=== PATIENT | female | born 1940 | race Caucasian/White ===

== ENCOUNTER 2016-12-28 13:17 | Inpatient (IN) | payer OTHER ==
[~2016-12-28] VITALS: Ht 157.5 cm; Wt 62.7 kg
[~2016-12-28 13:17] MED LIST: AMBIEN10 MG PO; AMITRIPTYLINE100 M1 PO; ASPIR-TRIN325 M1 PO; Ambien PO; BUSPAR5 MG PO; COUMADIN,JANTOVE4 MG PO; ELAVIL10 MG PO; ELAVIL75 MG PO; Elavil PO; GABAPENTIN800 MG PO; KADIAN100 MG PO; LOPRESSOR12.5 MG PO; MS CONTIN100 MG PO; NEURONTIN800 MG PO; NEXIUM10 MG PO; NEXIUM40 MG PO; NUCYNTA100 MG PO; NUCYNTA75 MG PO; OXYCONTIN10 MG PO; PAXIL10 MG PO; PAXIL30 MG PO; Paxil PO; REQUIP0.25 MG PO; REQUIP1 MG PO; SOMA250 MG PO; SOMA350 MG PO; Soma PO; ULTRAM50 MG PO; VICODIN 5-5001 EACH PO; Zocor PO
[2016-12-28 14:58] LABS: HEMATOCRIT 40.8 % (36.0-46.0); MCH 28.9 PG (29.0-34.0); MCHC 32.4 G/DL (30.0-36.0); MCV 89.5 FL (83-99); MEAN PLAT.VOLUME 9.7 uM^3 (9.5-12.4); PLATELET COUNT 318 K/uL (156-360); RBC DIS.WIDTH-CV 13.3 % (11.8-14.6); RBC DIS.WIDTH-SD 43.9 % (39-53); RED BLOOD COUNT 4.56 M/uL (3.80-5.20)
[2016-12-28 15:14] LABS: INTER. NORMALIZED RATIO 1.1; PROTHROMBIN TIME 11.1 (9.2-11.2); PTT 28.2 (25-32)
[2016-12-28 15:18] LABS: CHLORIDE 105 mEq/L (99-109); POTASSIUM 3.5 mEq/L (3.7-5.4); SODIUM 140 mEq/L (136-147)
[2016-12-28 15:20] LABS: GLUCOSE 124 mg/dL (70-99)
[2016-12-28 15:21] LABS: ANION GAP 12 MEQ/L (2-14)
[2016-12-28 15:24] LABS: GFR ESTIMATE (CALCULATED) > 59 mL/min/
[2016-12-28 15:25] LABS: TROP-I INTERPRETATION NEGATIVE; TROPONIN-I < 0.01 ng/mL (0.0-0.30); UREA NITROGEN (BUN) 11 mg/dL (9-23)
[2016-12-28] MEDS ORDERED: ELAVIL100 MG PO (16:48)
[2016-12-28] MEDS ORDERED: AMBIEN10 MG PO (16:48)
[2016-12-28] MEDS ORDERED: TRICOR145 MG PO (16:48)
[2016-12-28] MEDS ORDERED: MS CONTIN,ORAMO30 MG PO (16:49)
[2016-12-28] MEDS ORDERED: HYDROCODON-ACE1 EAC9 PO (16:50)
[2016-12-28 17:23] LABS: ADD MIUA? YES; BILIRUBIN NEGATIVE; BLOOD SMALL; COLOR STRAW ((YELLOW)); GLUCOSE (STRIP) NEGATIVE; KETONES NEGATIVE; LEUKOCYTES NEGATIVE; NITRITE NEGATIVE; PROTEIN (STRIP) NEGATIVE; SPECIFIC GRAVITY 1.006 (1.000-1.030); UROBILINOGEN 0.2 MG/DL (0.2-1.0)
[2016-12-28 17:27] LABS: BACTERIA NONE SEEN /HPF; EPITHELIAL CELLS RARE /HPF; MUCUS TRACE /LPF; RED BLOOD CELLS 0-5 /HPF (0-5); UCUL ADDED? NO; WHITE BLOOD CELLS 0-5 /HPF (0-5)
[2016-12-28 20:42] LABS: TROP-I INTERPRETATION NEGATIVE; TROPONIN-I 0.01 ng/mL (0.0-0.30)
[2016-12-28 23:43] VITALS: BP 111/61
[2016-12-29] VITALS (9 sets, daily range): BP systolic 82–114; BP diastolic 50–66
[2016-12-29 03:35] LABS: TROP-I INTERPRETATION NEGATIVE; TROPONIN-I < 0.01 ng/mL (0.0-0.30)
[2016-12-29 05:51] LABS: HEMATOCRIT 37.8 % (36.0-46.0); MCH 28.8 PG (29.0-34.0); MCHC 31.5 G/DL (30.0-36.0); MCV 91.5 FL (83-99); MEAN PLAT.VOLUME 9.9 uM^3 (9.5-12.4); PLATELET COUNT 319 K/uL (156-360); RBC DIS.WIDTH-CV 13.9 % (11.8-14.6); RBC DIS.WIDTH-SD 46.8 % (39-53); RED BLOOD COUNT 4.13 M/uL (3.80-5.20); WHITE BLOOD COUNT 6.6 K/uL (4.1-10.2)
[2016-12-29 06:31] LABS: CHLORIDE 110 mEq/L (99-109); POTASSIUM 3.6 mEq/L (3.7-5.4); SODIUM 143 mEq/L (136-147)
[2016-12-29 06:33] LABS: GLUCOSE 160 mg/dL (70-99)
[2016-12-29 06:34] LABS: ANION GAP 12 MEQ/L (2-14)
[2016-12-29 06:35] LABS: TOTAL BILIRUBIN 0.4 mg/dL (0.0-1.0)
[2016-12-29 06:36] LABS: ALKALINE PHOSPHATASE 64 IU/L (3-129)
[2016-12-29 06:37] LABS: GFR ESTIMATE (CALCULATED) > 59 mL/min/
[2016-12-29 06:38] LABS: UREA NITROGEN (BUN) 10 mg/dL (9-23)
[2016-12-29 07:00] LABS: Estimated Average Glucose 123 mg/dL (70-123); HEMOGLOBIN A1c (GLYCOHEMOGLOB) 5.9 % HGB (Below 5.7)
[2016-12-29 07:25] LABS: HDL CHOLESTEROL 39 MG/DL (Desirable>=50); LDL CHOLESTEROL 115 mg/dL (Desirable<100); NON-HDL CHOLESTEROL 157 mg/dL (Desirable<160); TOTAL CHOLESTEROL 196 mg/dL (Desirable<200); TRIGLYCERIDES 208 MG/DL (Normal: <150)
[2016-12-30 03:21] VITALS: BP 125/65
[2016-12-30 07:37] VITALS: BP 91/53
[2016-12-30] MEDS ORDERED: ASPIR-LOW81 MG PO (11:22)
[2016-12-30] MEDS ORDERED: LIPITOR40 MG PO (11:37)
[2016-12-30] MEDS ORDERED: LOVENOX40 MG/0.4 SC (11:38)
[2016-12-30] MEDS ORDERED: COLACE100 MG PO (11:39)
[2016-12-30] MEDS ORDERED: MIRALAX17 GM PO (11:39)
[2016-12-30] MEDS ORDERED: ACETAMINOPHEN325 M1 PO (11:40)
== END 2016-12-30 09:59 | DRG 65 ==
LOC: EME 13:17 → 5SOUTH 17:07 → EDOF 17:07 → 5SOUTH 17:07
PROVIDERS: Emergency Medicine; Internal Medicine
DX: I63.8 Other cerebral infarction (principal); G81.94 Hemiplegia, unspecified affecting left nondominant side; R73.03 Prediabetes; Z86.73 Personal history of transient ischemic attack (TIA), and cerebral infarction without residual deficits; G25.81 Restless legs syndrome; G89.29 Other chronic pain; M54.9 Dorsalgia, unspecified; E78.4 Other hyperlipidemia; R42 Dizziness and giddiness; R73.9 Hyperglycemia, unspecified; E87.6 Hypokalemia
CPT/HCPCS: 70450; 70551; 80048; 80053; 80061; 81003; 83036; 84484; 85027; 85610; 85730; 92610 GN; 93005; 93306; 93880; 99281; 99285; J1650; J2060; J2405; J2765; J7030; S0028

== ENCOUNTER 2016-12-30 09:34 | Inpatient (IN) | payer OTHER ==
[~2016-12-30] VITALS: Ht 157.5 cm; Wt 65.9 kg
[~2016-12-30 09:34] MED LIST changes: +ELAVIL100 MG PO; +HYDROCODON-ACE1 EAC9 PO; +MS CONTIN,ORAMO30 MG PO; +TRICOR145 MG PO
[2016-12-30] MEDS ORDERED: ASPIR-LOW81 MG PO (11:22)
[2016-12-30] MEDS ORDERED: LIPITOR40 MG PO (11:37)
[2016-12-30] MEDS ORDERED: LOVENOX40 MG/0.4 SC (11:38)
[2016-12-30] MEDS ORDERED: MIRALAX17 GM PO (11:39)
[2016-12-30] MEDS ORDERED: COLACE100 MG PO (11:39)
[2016-12-30] MEDS ORDERED: ACETAMINOPHEN325 M1 PO (11:40)
[2016-12-30 11:47] VITALS: BP 100/59
[2016-12-30 13:16] VITALS: BP 100/59
[2016-12-31 06:19] VITALS: BP 98/53
[2016-12-31 07:10] LABS: HEMATOCRIT 39.4 % (36.0-46.0); MCH 29.5 PG (29.0-34.0); MCV 92.3 FL (83-99); MEAN PLAT.VOLUME 10.3 uM^3 (9.5-12.4); PLATELET COUNT 330 K/uL (156-360); RBC DIS.WIDTH-CV 13.5 % (11.8-14.6); RBC DIS.WIDTH-SD 45.9 % (39-53); RED BLOOD COUNT 4.27 M/uL (3.80-5.20); WHITE BLOOD COUNT 6.6 K/uL (4.1-10.2)
[2016-12-31 07:45] LABS: ALKALINE PHOSPHATASE 58 IU/L (3-129); ANION GAP 8 MEQ/L (2-14); CHLORIDE 102 MEQ/L (99-109); GFR ESTIMATE (CALCULATED) 51 mL/min/; GLUCOSE 79 mg/dL (70-99); POTASSIUM 5.2 MEQ/L (3.7-5.4); SAMPLE HEMOLYSIS CHECK 2; SAMPLE ICTERIC CHECK 0; SAMPLE LIPEMIA CHECK 0; SODIUM 140 MEQ/L (136-147); TOTAL BILIRUBIN 0.5 MG/DL (0.0-1.0); UREA NITROGEN (BUN) 18 mg/dL (9-23)
[2016-12-31 13:00] VITALS: BP 112/75
[2017-01-01 05:34] VITALS: BP 82/52
[2017-01-01 08:03] VITALS: BP 102/68
[2017-01-01 11:35] VITALS: BP 108/60
[2017-01-01 15:52] VITALS: BP 89/53
[2017-01-02 05:35] VITALS: BP 117/59
[2017-01-02 16:34] VITALS: BP 108/62
[2017-01-03 04:00] VITALS: BP 90/59
[2017-01-03 17:56] VITALS: BP 106/62
[2017-01-04 04:32] VITALS: BP 80/53
[2017-01-04 14:02] VITALS: BP 86/50
[2017-01-04 15:17] VITALS: BP 94/55
[2017-01-05 04:25] VITALS: BP 94/62
[2017-01-05 10:10] LABS: HEMATOCRIT 42.6 % (36.0-46.0); MCH 29.2 PG (29.0-34.0); MCHC 31.7 G/DL (30.0-36.0); MCV 92.2 FL (83-99); RBC DIS.WIDTH-CV 13.7 % (11.8-14.6); RBC DIS.WIDTH-SD 46.6 % (39-53); RED BLOOD COUNT 4.62 M/uL (3.80-5.20); WHITE BLOOD COUNT 5.9 K/uL (4.1-10.2)
[2017-01-05 10:22] LABS: CHLORIDE 102 mEq/L (99-109); POTASSIUM 4.2 mEq/L (3.7-5.4); SODIUM 141 mEq/L (136-147)
[2017-01-05 10:23] LABS: GLUCOSE 148 mg/dL (70-99)
[2017-01-05 10:25] LABS: ANION GAP 9 MEQ/L (2-14)
[2017-01-05 10:27] LABS: GFR ESTIMATE (CALCULATED) 57 mL/min/
[2017-01-05 10:28] LABS: UREA NITROGEN (BUN) 18 mg/dL (9-23)
[2017-01-05 10:31] VITALS: BP 102/68
[2017-01-05 11:15] LABS: MEAN PLAT.VOLUME 10.8 uM^3 (9.5-12.4); PLAT.SUFFICIENCY INCREASED; PLATELET COUNT 323 K/uL (156-360)
[2017-01-05 14:14] VITALS: BP 104/68
[2017-01-05 16:05] VITALS: BP 120/70
[2017-01-05 16:06] VITALS: BP 119/67
[2017-01-05 16:07] VITALS: BP 119/55
[2017-01-06 05:47] VITALS: BP 88/52
[2017-01-06 06:04] VITALS: BP 121/71
[2017-01-06 06:07] VITALS: BP 102/75
[2017-01-06 15:22] VITALS: BP 86/51
[2017-01-07 05:41] VITALS: BP 92/50
[2017-01-07 05:51] VITALS: BP 92/50
[2017-01-07 05:53] VITALS: BP 100/71
[2017-01-07 05:54] VITALS: BP 100/71
[2017-01-07 15:03] VITALS: BP 99/67
[2017-01-08 04:20] VITALS: BP 82/46
[2017-01-08 11:12] VITALS: BP 117/70
[2017-01-08 15:37] VITALS: BP 117/75
[2017-01-09 04:41] VITALS: BP 87/54
[2017-01-09 17:13] VITALS: BP 95/50
[2017-01-10 06:15] VITALS: BP 86/50
[2017-01-10 08:46] VITALS: BP 107/68
[2017-01-10 15:41] VITALS: BP 90/55
[2017-01-11 05:06] VITALS: BP 104/54
[2017-01-11 15:14] VITALS: BP 103/74
[2017-01-12 05:35] VITALS: BP 106/59
[2017-01-12 15:35] VITALS: BP 84/53
[2017-01-12 18:04] VITALS: BP 109/60
[2017-01-13 04:48] VITALS: BP 88/55
[2017-01-13 15:27] VITALS: BP 100/69
[2017-01-14 04:50] VITALS: BP 86/53
[2017-01-14 15:46] VITALS: BP 109/68
[2017-01-14 17:14] LABS: BICARBONATE 25.2 mEq/L (22-26); CARBOXY HGB 2.1 % (0-5); COMMENTS - BLOOD GASES A+C+; DEVICE NC; METHEMOGLOBIN 1.4 % (0-1.5); O2 FLOW 2 L/MIN; PCO2 38 mm Hg (35-45); PO2 58 mm Hg (80-100); SITE LR; pH 7.43 (7.35-7.45)
[2017-01-14 22:52] VITALS: BP 121/63
[2017-01-15 05:47] VITALS: BP 85/50
[2017-01-15 06:15] VITALS: BP 100/65
[2017-01-15 07:44] VITALS: BP 85/53
[2017-01-15 07:45] VITALS: BP 105/68
[2017-01-15 07:46] VITALS: BP 97/70
[2017-01-15 11:46] LABS: HEMATOCRIT 47.3 % (36.0-46.0); MCHC 31.7 G/DL (30.0-36.0); MCV 91.3 FL (83-99); MEAN PLAT.VOLUME 10.4 uM^3 (9.5-12.4); PLATELET COUNT 391 K/uL (156-360); RBC DIS.WIDTH-CV 13.5 % (11.8-14.6); RED BLOOD COUNT 5.18 M/uL (3.80-5.20); WHITE BLOOD COUNT 6.8 K/uL (4.1-10.2)
[2017-01-15 12:03] LABS: D-DIMER ELISA 0.32 mg/L FEU (< 0.57)
[2017-01-15 12:52] LABS: ALKALINE PHOSPHATASE 52 IU/L (3-129); ANION GAP 11 MEQ/L (2-14); CHLORIDE 101 MEQ/L (99-109); GFR ESTIMATE (CALCULATED) > 59 mL/min/; GLUCOSE 125 mg/dL (70-99); POTASSIUM 4.3 MEQ/L (3.7-5.4); SAMPLE HEMOLYSIS CHECK 0; SAMPLE ICTERIC CHECK 0; SAMPLE LIPEMIA CHECK 0; SODIUM 139 MEQ/L (136-147); TOTAL BILIRUBIN 0.4 MG/DL (0.0-1.0); UREA NITROGEN (BUN) 20 mg/dL (9-23)
[2017-01-15 15:42] VITALS: BP 84/51
[2017-01-16 05:16] VITALS: BP 81/51
[2017-01-16 12:53] VITALS: BP 122/65
[2017-01-16 15:35] VITALS: BP 84/52
[2017-01-17 06:20] VITALS: BP 81/53
[2017-01-17 09:00] VITALS: BP 107/56
[2017-01-17 15:32] VITALS: BP 75/48
[2017-01-17 15:40] VITALS: BP 88/58
[2017-01-17 18:11] VITALS: BP 90/60
[2017-01-18 06:24] VITALS: BP 80/52
[2017-01-18 07:40] LABS: HEMATOCRIT 39.8 % (36.0-46.0); MCHC 31.7 G/DL (30.0-36.0); MCV 91.7 FL (83-99); MEAN PLAT.VOLUME 10.5 uM^3 (9.5-12.4); PLATELET COUNT 332 K/uL (156-360); RBC DIS.WIDTH-CV 13.6 % (11.8-14.6); RBC DIS.WIDTH-SD 46.3 % (39-53); RED BLOOD COUNT 4.34 M/uL (3.80-5.20); WHITE BLOOD COUNT 5.1 K/uL (4.1-10.2)
[2017-01-18 07:46] LABS: ALKALINE PHOSPHATASE 44 IU/L (3-129); ANION GAP 6 MEQ/L (2-14); CHLORIDE 105 MEQ/L (99-109); GFR ESTIMATE (CALCULATED) > 59 mL/min/; POTASSIUM 4.2 MEQ/L (3.7-5.4); SAMPLE HEMOLYSIS CHECK 0; SAMPLE ICTERIC CHECK 0; SAMPLE LIPEMIA CHECK 0; SODIUM 140 MEQ/L (136-147); UREA NITROGEN (BUN) 15 mg/dL (9-23)
[2017-01-18 08:11] LABS: GLUCOSE 88 mg/dL (70-99); TOTAL BILIRUBIN 0.3 MG/DL (0.0-1.0)
[2017-01-18 15:37] VITALS: BP 100/59
[2017-01-19 05:59] VITALS: BP 103/64
[2017-01-19] MEDS ORDERED: LIPITOR40 MG PO (09:56)
[2017-01-19] MEDS ORDERED: ASPIR-LOW81 MG PO (09:56)
[2017-01-19] MEDS ORDERED: MIRALAX17 GM PO (09:56)
[2017-01-19] MEDS ORDERED: FAMOTIDINE20 MG PO (09:56)
[2017-01-19] MEDS ORDERED: TRICOR145 MG PO (09:56)
== END 2017-01-19 14:47 | DRG 57 ==
LOC: 3WEST 09:34
PROVIDERS: Internal Medicine; Internal Medicine Pulmonary Disease; Physical Medicine & Rehabilitation Pain Medicine; Physician Assistant
PROC: F07M0ZZ Range of Motion and Joint Mobility Treatment of Musculoskeletal System - Whole Body (ICD-10-PCS; principal; 2016-12-30)
DX: I69.354 Hemiplegia and hemiparesis following cerebral infarction affecting left non-dominant side (principal); J98.11 Atelectasis; R09.02 Hypoxemia; I95.1 Orthostatic hypotension; E86.0 Dehydration; E87.6 Hypokalemia; F32.9 Major depressive disorder, single episode, unspecified; G25.81 Restless legs syndrome; G89.29 Other chronic pain; R20.0 Anesthesia of skin; M54.16 Radiculopathy, lumbar region; S84.10XA Injury of peroneal nerve at lower leg level, unspecified leg, initial encounter; I10 Essential (primary) hypertension; E11.9 Type 2 diabetes mellitus without complications; E78.5 Hyperlipidemia, unspecified; K21.9 Gastro-esophageal reflux disease without esophagitis; K59.00 Constipation, unspecified; Z60.2 Problems related to living alone; Z79.82 Long term (current) use of aspirin; Z88.0 Allergy status to penicillin; Z88.5 Allergy status to narcotic agent
CPT/HCPCS: 36600; 71010; 71275; 80048; 80053; 82803; 84443; 85027; 85379; 92507 GN; 92523 GN; 94799; 97110 GO; 97530 GP; 97532 GN; J1650; J7030; J7120

== ENCOUNTER 2017-02-01 18:31 | Inpatient (IN) | payer OTHER ==
[~2017-02-01] VITALS: Ht 157.5 cm; Wt 61.4 kg
[~2017-02-01 18:31] MED LIST changes: +ACETAMINOPHEN325 M1 PO; +ASPIR-LOW81 MG PO; +COLACE100 MG PO; +FAMOTIDINE20 MG PO; +LIPITOR40 MG PO; +LOVENOX40 MG/0.4 SC; +MIRALAX17 GM PO
[2017-02-01 19:50] LABS: HEMATOCRIT 42.8 % (36.0-46.0); MCH 28.7 PG (29.0-34.0); MCHC 32.9 G/DL (30.0-36.0); MEAN PLAT.VOLUME 10.4 uM^3 (9.5-12.4); PLATELET COUNT 358 K/uL (156-360); RBC DIS.WIDTH-CV 13.9 % (11.8-14.6); RBC DIS.WIDTH-SD 44.6 % (39-53); RED BLOOD COUNT 4.91 M/uL (3.80-5.20); WHITE BLOOD COUNT 7.4 K/uL (4.1-10.2)
[2017-02-01 19:51] LABS: CHLORIDE 109 mEq/L (99-109); MCV 87.2 FL (83-99)
[2017-02-01 19:52] LABS: POTASSIUM 3.6 mEq/L (3.7-5.4); SODIUM 141 mEq/L (136-147)
[2017-02-01 19:54] LABS: GLUCOSE 150 mg/dL (70-99)
[2017-02-01 19:55] LABS: ANION GAP 11 MEQ/L (2-14)
[2017-02-01 19:56] LABS: TOTAL BILIRUBIN 0.3 mg/dL (0.0-1.0)
[2017-02-01 19:57] LABS: ALKALINE PHOSPHATASE 45 IU/L (3-129)
[2017-02-01 19:58] LABS: GFR ESTIMATE (CALCULATED) 51 mL/min/
[2017-02-01 19:59] LABS: DIRECT BILIRUBIN 0.2 mg/dL (0.0-0.3); UREA NITROGEN (BUN) 18 mg/dL (9-23)
[2017-02-01 20:01] LABS: LIPASE 49 U/L (1.0-51.0)
[2017-02-01 20:02] LABS: TROP-I INTERPRETATION NEGATIVE; TROPONIN-I < 0.01 ng/mL (0.0-0.30)
[2017-02-01] MEDS ORDERED: ASPIR 8181 M1 PO (22:21)
[2017-02-01] MEDS ORDERED: FAMOTIDINE20 MG PO (22:22)
[2017-02-01] MEDS ORDERED: AMBIEN10 MG PO (22:22)
[2017-02-01] MEDS ORDERED: MIRALAX255 GM PO (22:22)
[2017-02-02] VITALS (7 sets, daily range): BP systolic 90–121; BP diastolic 52–72
[2017-02-02 03:16] LABS: INTER. NORMALIZED RATIO 1.2; PTT 27.8 (25-32)
[2017-02-02 06:52] LABS: TROP-I INTERPRETATION NEGATIVE; TROPONIN-I < 0.01 ng/mL (0.0-0.30)
[2017-02-02 12:50] LABS: TROP-I INTERPRETATION NEGATIVE; TROPONIN-I < 0.01 ng/mL (0.0-0.30)
[2017-02-02 14:57] LABS: ADD MIUA? YES; BILIRUBIN NEGATIVE; BLOOD SMALL; COLOR YELLOW ((YELLOW)); GLUCOSE (STRIP) NEGATIVE; KETONES NEGATIVE; LEUKOCYTES MODERATE; NITRITE NEGATIVE; PROTEIN (STRIP) NEGATIVE; SPECIFIC GRAVITY 1.026 (1.000-1.030); UROBILINOGEN 0.2 MG/DL (0.2-1.0)
[2017-02-02 15:17] LABS: BACTERIA RARE /HPF; EPITHELIAL CELLS RARE /HPF; MUCUS TRACE /LPF; RED BLOOD CELLS 0-5 /HPF (0-5); UCUL ADDED? NO; WHITE BLOOD CELLS 0-5 /HPF (0-5); WHITE BLOOD CELLS CLUMP RARE /HPF (0-5)
[2017-02-03 03:45] VITALS: BP 93/53
[2017-02-03 07:09] LABS: ANION GAP 9 MEQ/L (2-14); CHLORIDE 109 MEQ/L (99-109); GFR ESTIMATE (CALCULATED) 57 mL/min/; POTASSIUM 3.9 MEQ/L (3.7-5.4); SAMPLE HEMOLYSIS CHECK 0; SAMPLE ICTERIC CHECK 0; SAMPLE LIPEMIA CHECK 0; SODIUM 141 MEQ/L (136-147); UREA NITROGEN (BUN) 22 mg/dL (9-23)
[2017-02-03 07:10] LABS: GLUCOSE 98 mg/dL (70-99)
[2017-02-03 07:44] LABS: HEMATOCRIT 35.5 % (36.0-46.0); MCH 29.2 PG (29.0-34.0); MCHC 32.1 G/DL (30.0-36.0); MCV 90.8 FL (83-99); MEAN PLAT.VOLUME 10.8 uM^3 (9.5-12.4); PLATELET COUNT 300 K/uL (156-360); RBC DIS.WIDTH-CV 14.5 % (11.8-14.6); RBC DIS.WIDTH-SD 48.3 % (39-53); RED BLOOD COUNT 3.91 M/uL (3.80-5.20); WHITE BLOOD COUNT 7.4 K/uL (4.1-10.2)
[2017-02-03 08:38] VITALS: BP 95/61
[2017-02-03 12:45] VITALS: BP 91/55
[2017-02-03 15:54] VITALS: BP 101/60
[2017-02-03 20:42] VITALS: BP 90/50
[2017-02-03 23:40] VITALS: BP 108/70
[2017-02-04 04:04] VITALS: BP 82/49
[2017-02-04 07:50] VITALS: BP 95/52
[2017-02-04 11:30] VITALS: BP 94/64
[2017-02-04 15:39] VITALS: BP 122/69
[2017-02-04 20:05] VITALS: BP 98/57
[2017-02-04 23:42] VITALS: BP 107/68
[2017-02-05] VITALS (7 sets, daily range): BP systolic 78–105; BP diastolic 49–67
[2017-02-05 14:18] LABS: MCH 28.6 PG (29.0-34.0); MCHC 31.3 G/DL (30.0-36.0); MCV 91.3 FL (83-99); MEAN PLAT.VOLUME 10.2 uM^3 (9.5-12.4); PLATELET COUNT 332 K/uL (156-360); RBC DIS.WIDTH-CV 14.3 % (11.8-14.6); RED BLOOD COUNT 4.27 M/uL (3.80-5.20); WHITE BLOOD COUNT 6.5 K/uL (4.1-10.2)
[2017-02-06 03:54] VITALS: BP 90/59
[2017-02-06 05:55] LABS: HEMATOCRIT 37.7 % (36.0-46.0); MCH 28.6 PG (29.0-34.0); MCHC 31.6 G/DL (30.0-36.0); MCV 90.6 FL (83-99); MEAN PLAT.VOLUME 10.4 uM^3 (9.5-12.4); PLATELET COUNT 316 K/uL (156-360); RBC DIS.WIDTH-CV 14.1 % (11.8-14.6); RBC DIS.WIDTH-SD 47.1 % (39-53); RED BLOOD COUNT 4.16 M/uL (3.80-5.20); WHITE BLOOD COUNT 6.2 K/uL (4.1-10.2)
[2017-02-06 06:33] LABS: ANION GAP 9 MEQ/L (2-14); CHLORIDE 103 MEQ/L (99-109); GFR ESTIMATE (CALCULATED) > 59 mL/min/; GLUCOSE 109 mg/dL (70-99); POTASSIUM 4.4 MEQ/L (3.7-5.4); SAMPLE HEMOLYSIS CHECK 0; SAMPLE ICTERIC CHECK 0; SAMPLE LIPEMIA CHECK 0; SODIUM 139 MEQ/L (136-147); UREA NITROGEN (BUN) 18 mg/dL (9-23)
[2017-02-06 07:39] VITALS: BP 97/60
[2017-02-06 11:59] VITALS: BP 133/73
[2017-02-06] MEDS ORDERED: ELIQUIS5 MG PO ×3 (12:09→12:25)
[2017-02-06] MEDS ORDERED: ADVAIR HFA120 INHALA IH (12:09)
== END 2017-02-06 15:08 | DRG 191 ==
LOC: EME 18:31 → 5SOUTH 02-02 00:19 → EDOF 02-02 00:19 → 5SOUTH 02-02 01:36
PROVIDERS: Emergency Medicine; Hospitalist; Nurse Practitioner Adult Health
DX: J44.1 Chronic obstructive pulmonary disease with (acute) exacerbation (principal); E04.2 Nontoxic multinodular goiter; R53.1 Weakness; I69.398 Other sequelae of cerebral infarction; I82.441 Acute embolism and thrombosis of right tibial vein; E11.9 Type 2 diabetes mellitus without complications; E78.5 Hyperlipidemia, unspecified; G25.81 Restless legs syndrome; I50.32 Chronic diastolic (congestive) heart failure; K21.9 Gastro-esophageal reflux disease without esophagitis; R09.02 Hypoxemia; J98.11 Atelectasis; I69.351 Hemiplegia and hemiparesis following cerebral infarction affecting right dominant side; I95.9 Hypotension, unspecified; R91.1 Solitary pulmonary nodule; J98.4 Other disorders of lung; Z99.81 Dependence on supplemental oxygen; Z88.0 Allergy status to penicillin; Z79.82 Long term (current) use of aspirin
CPT/HCPCS: 71020; 71275; 78582; 80048; 80076; 81003; 83690; 84484; 85027; 85610; 85730; 93005; 93970; 94010; 94640; 94640 76; 94799; 97530 GP; 99202; 99281; 99285; A9539; A9540; J1100; J1644; J1650; J2405; J7030

== ENCOUNTER 2017-04-10 15:59 | Inpatient (IN) | payer OTHER ==
[~2017-04-10] VITALS: Ht 157.5 cm; Wt 63.5 kg
[~2017-04-10 15:59] MED LIST changes: +ADVAIR HFA120 INHALA IH; +ASPIR 8181 M1 PO; +ELIQUIS5 MG PO; +MIRALAX255 GM PO
[2017-04-10 17:16] LABS: HEMATOCRIT 40.9 % (36.0-46.0); MCH 28.9 PG (29.0-34.0); MCHC 33.3 G/DL (30.0-36.0); MCV 86.8 FL (83-99); RBC DIS.WIDTH-CV 16.1 % (11.8-14.6); RBC DIS.WIDTH-SD 50.7 % (39-53); RED BLOOD COUNT 4.71 M/uL (3.80-5.20); WHITE BLOOD COUNT 9.4 K/uL (4.1-10.2)
[2017-04-10 17:17] LABS: CARBON DIOXIDE (BICARBONATE) 26.7 MEQ/L (20-31)
[2017-04-10 17:28] LABS: CHLORIDE 106 mEq/L (99-109)
[2017-04-10 17:29] LABS: POTASSIUM 3.6 mEq/L (3.7-5.4); SODIUM 139 mEq/L (136-147)
[2017-04-10 17:30] LABS: GLUCOSE 97 mg/dL (70-99)
[2017-04-10 17:32] LABS: ANION GAP 10 MEQ/L (2-14)
[2017-04-10 17:34] LABS: GFR ESTIMATE (CALCULATED) 46 mL/min/
[2017-04-10 17:35] LABS: UREA NITROGEN (BUN) 16 mg/dL (9-23)
[2017-04-10 17:38] LABS: TROP-I INTERPRETATION NEGATIVE; TROPONIN-I < 0.01 ng/mL (0.0-0.30)
[2017-04-10 19:08] LABS: MEAN PLAT.VOLUME 10.6 uM^3 (9.5-12.4); PLAT.SUFFICIENCY ADEQUATE; PLATELET COUNT 393 K/uL (156-360)
[2017-04-10] MEDS ORDERED: BREO ELLIPTA I1 EACH IH (20:59)
[2017-04-10] MEDS ORDERED: ELAVIL100 MG PO (21:00)
[2017-04-10 23:15] VITALS: BP 103/63
[2017-04-10 23:44] LABS: ADD MIUA? YES; BILIRUBIN NEGATIVE; BLOOD SMALL; COLOR YELLOW ((YELLOW)); GLUCOSE (STRIP) 50; KETONES NEGATIVE; LEUKOCYTES MODERATE; NITRITE NEGATIVE; PROTEIN (STRIP) NEGATIVE; SPECIFIC GRAVITY 1.012 (1.000-1.030); UROBILINOGEN 0.2 MG/DL (0.2-1.0)
[2017-04-10 23:57] LABS: BACTERIA 1+ /HPF; EPITHELIAL CELLS RARE /HPF; MUCUS TRACE /LPF; UCUL ADDED? NO; WHITE BLOOD CELLS 0-5 /HPF (0-5)
[2017-04-11 04:00] VITALS: BP 86/54
[2017-04-11 06:54] LABS: HEMATOCRIT 37.7 % (36.0-46.0); MCH 28.2 PG (29.0-34.0); MCHC 31.8 G/DL (30.0-36.0); MCV 88.7 FL (83-99); MEAN PLAT.VOLUME 10.6 uM^3 (9.5-12.4); PLATELET COUNT 372 K/uL (156-360); RBC DIS.WIDTH-CV 16.5 % (11.8-14.6); RBC DIS.WIDTH-SD 53.9 % (39-53); RED BLOOD COUNT 4.25 M/uL (3.80-5.20); WHITE BLOOD COUNT 6.1 K/uL (4.1-10.2)
[2017-04-11 07:16] LABS: ANION GAP 12 MEQ/L (2-14); CHLORIDE 106 MEQ/L (99-109); GFR ESTIMATE (CALCULATED) 57 mL/min/; SAMPLE HEMOLYSIS CHECK 0; SAMPLE ICTERIC CHECK 0; SAMPLE LIPEMIA CHECK 0; SODIUM 141 MEQ/L (136-147); UREA NITROGEN (BUN) 23 mg/dL (9-23)
[2017-04-11 07:23] LABS: GLUCOSE 150 mg/dL (70-99); POTASSIUM 4.6 MEQ/L (3.7-5.4)
[2017-04-11 07:47] VITALS: BP 90/56
[2017-04-11 11:33] VITALS: BP 96/53
[2017-04-11 15:19] VITALS: BP 99/61
[2017-04-11 20:02] VITALS: BP 98/57
[2017-04-12] VITALS (7 sets, daily range): BP systolic 82–108; BP diastolic 48–58
[2017-04-13 08:50] VITALS: BP 134/66
[2017-04-13] MEDS ORDERED: PREDNISONE20 MG PO (09:55)
[2017-04-13] MEDS ORDERED: LEVAQUIN750 MG PO (09:56)
== END 2017-04-13 12:55 | disposition home health service (06) | DRG 191 ==
LOC: EME 15:59 → EDOF 21:50 → 5SOUTH 21:50 → ENRESERV 21:51 → 5SOUTH 23:06
PROVIDERS: Emergency Medicine; Hospitalist
DX: J44.1 Chronic obstructive pulmonary disease with (acute) exacerbation (principal); E86.0 Dehydration; I50.32 Chronic diastolic (congestive) heart failure; G25.81 Restless legs syndrome; G89.29 Other chronic pain; M54.9 Dorsalgia, unspecified; G47.00 Insomnia, unspecified; K59.09 Other constipation; K21.9 Gastro-esophageal reflux disease without esophagitis; G43.909 Migraine, unspecified, not intractable, without status migrainosus; Z86.711 Personal history of pulmonary embolism; Z86.718 Personal history of other venous thrombosis and embolism; I69.354 Hemiplegia and hemiparesis following cerebral infarction affecting left non-dominant side; Z79.82 Long term (current) use of aspirin; Z88.0 Allergy status to penicillin; Z79.01 Long term (current) use of anticoagulants
CPT/HCPCS: 71020; 80048; 81003; 82803; 83605; 83880; 84484; 85027; 87040; 93005; 94640; 94640 76; 94799; 99202; 99281; 99285; J1100; J1644; J1885; J1956; J2270; J2405; J2930; J7050; J7512

== ENCOUNTER 2017-08-16 21:09 | Observation (INO) | payer OTHER ==
[~2017-08-16] VITALS: Ht 157.5 cm; Wt 59.0 kg
[~2017-08-16 21:09] MED LIST changes: +BREO ELLIPTA I1 EACH IH; +LEVAQUIN750 MG PO; +MIRALAX119 GM PO; -MIRALAX255 GM PO; +PREDNISONE20 MG PO
[2017-08-16 22:45] LABS: HEMOGLOBIN 13.4 G/DL (11.9-15.5); MCH 28.6 PG (29.0-34.0); MCHC 32.7 G/DL (30.0-36.0); MCV 87.6 FL (83-99); PLATELET COUNT 457 K/uL (156-360); RBC DIS.WIDTH-CV 14.7 % (11.8-14.6); RED BLOOD COUNT 4.68 M/uL (3.80-5.20); WHITE BLOOD COUNT 7.9 K/uL (4.1-10.2)
[2017-08-16 22:53] LABS: CHLORIDE 106 mEq/L (99-109); POTASSIUM 3.9 mEq/L (3.7-5.4); SODIUM 140 mEq/L (136-147)
[2017-08-16 22:55] LABS: GLUCOSE 110 mg/dL (70-99)
[2017-08-16 22:59] LABS: CREATININE 1.1 mg/dL (0.6-1.3); GFR ESTIMATE (CALCULATED) 51 mL/min/
[2017-08-16 23:00] LABS: UREA NITROGEN (BUN) 25 mg/dL (9-23)
[2017-08-16 23:04] LABS: TROP-I INTERPRETATION NEGATIVE; TROPONIN-I < 0.01 ng/mL (0.0-0.30)
[2017-08-17 06:48] LABS: D-DIMER ELISA < 150.00 ng/mLDDU (<230)
[2017-08-17 07:00] LABS: TROP-I INTERPRETATION NEGATIVE; TROPONIN-I < 0.01 ng/mL (0.0-0.30)
[2017-08-17] MEDS ORDERED: PROAIR HFA8.5 GM IH (11:29)
[2017-08-17 13:01] LABS: TROP-I INTERPRETATION NEGATIVE; TROPONIN-I < 0.01 ng/mL (0.0-0.30)
[2017-08-17 13:05] LABS: APPEARANCE CLEAR ((CLEAR)); BILIRUBIN NEGATIVE; BLOOD SMALL; COLOR YELLOW ((YELLOW)); GLUCOSE (STRIP) NEGATIVE; KETONES NEGATIVE; LEUKOCYTES MODERATE; NITRITE NEGATIVE; PROTEIN (STRIP) NEGATIVE; SPECIFIC GRAVITY 1.018 (1.000-1.030); UROBILINOGEN 0.2 MG/DL (0.2-1.0)
[2017-08-17 13:09] LABS: BACTERIA RARE /HPF; CALCIUM OXALATE CRYSTALS 1+ /HPF; EPITHELIAL CELLS RARE /HPF; MUCUS TRACE /LPF; RED BLOOD CELLS 0-5 /HPF (0-5); UCUL ADDED? YES; WHITE BLOOD CELLS 15-20 /HPF (0-5)
[2017-08-17 17:38] VITALS: BP 103/57
[2017-08-17 19:00] VITALS: BP 100/56
[2017-08-17 23:36] VITALS: BP 93/52
[2017-08-18] VITALS (7 sets, daily range): BP systolic 88–108; BP diastolic 43–59
[2017-08-18 06:13] LABS: INTER. NORMALIZED RATIO 1.3
[2017-08-18] MEDS ORDERED: CIPROFLOXACIN250 MG PO (11:20)
[2017-08-19 03:52] VITALS: BP 90/56
[2017-08-19 08:45] VITALS: BP 104/69
[2017-08-19] MEDS ORDERED: ASPIR 8181 M1 PO (11:47)
== END 2017-08-19 10:30 ==
LOC: EME 21:09 → EDOF 08-17 03:32 → ENRESERV 08-17 03:36 → 5WEST 08-17 16:32
PROVIDERS: Emergency Medicine; Hospitalist
DX: R06.02 Shortness of breath (principal); R07.9 Chest pain, unspecified; R53.1 Weakness; R26.89 Other abnormalities of gait and mobility; E53.8 Deficiency of other specified B group vitamins; R09.02 Hypoxemia; I69.354 Hemiplegia and hemiparesis following cerebral infarction affecting left non-dominant side; N39.0 Urinary tract infection, site not specified; I95.9 Hypotension, unspecified; Z86.718 Personal history of other venous thrombosis and embolism; G25.81 Restless legs syndrome; K21.9 Gastro-esophageal reflux disease without esophagitis; E78.5 Hyperlipidemia, unspecified; G89.29 Other chronic pain; M54.5 Low back pain; Z88.0 Allergy status to penicillin; Z88.5 Allergy status to narcotic agent; Z88.8 Allergy status to other drugs, medicaments and biological substances; Z91.09 Other allergy status, other than to drugs and biological substances
CPT/HCPCS: 70551; 71046; 80048; 81003; 82607; 83605; 83880; 84443; 84484; 85027; 85379; 85610; 85730; 87040; 87077; 87086; 87186; 87502; 93005; 94640; 94640 76; 94760; 94799; 99281; 99285; G0378; G8978 GP CJ; G8979 GP CI; G8980 CJ; J2060; J2270; J3420

== ENCOUNTER 2017-08-19 09:35 | Inpatient (IN) | payer OTHER ==
[~2017-08-19] VITALS: Ht 157.5 cm; Wt 57.6 kg
[~2017-08-19 09:35] MED LIST changes: +CIPROFLOXACIN250 MG PO; +PROAIR HFA8.5 GM IH
[2017-08-19 10:57] VITALS: BP 119/63
[2017-08-19] MEDS ORDERED: ASPIR 8181 M1 PO (11:47)
[2017-08-19 15:16] VITALS: BP 104/56
[2017-08-20 05:39] LABS: HEMATOCRIT 36.5 % (36.0-46.0); HEMOGLOBIN 11.9 G/DL (11.9-15.5); MCH 28.9 PG (29.0-34.0); MCHC 32.6 G/DL (30.0-36.0); MCV 88.6 FL (83-99); RBC DIS.WIDTH-CV 14.7 % (11.8-14.6); RBC DIS.WIDTH-SD 48.1 % (39-53); RED BLOOD COUNT 4.12 M/uL (3.80-5.20); WHITE BLOOD COUNT 8.2 K/uL (4.1-10.2)
[2017-08-20 05:40] VITALS: BP 113/53
[2017-08-20 06:06] LABS: ALBUMIN 3.9 G/DL (3.2-4.8); ALKALINE PHOSPHATASE 38 IU/L (3-129); ALT (GPT) 11 IU/L (3-49); AST (GOT) 14 IU/L (2-34); CHLORIDE 100 MEQ/L (99-109); CREATININE 1.1 MG/DL (0.6-1.3); GFR ESTIMATE (CALCULATED) 51 mL/min/; GLUCOSE 110 mg/dL (70-99); POTASSIUM 3.8 MEQ/L (3.7-5.4); SODIUM 138 MEQ/L (136-147); TOTAL BILIRUBIN 0.4 MG/DL (0.0-1.0); TOTAL PROTEIN 6.5 G/DL (6.4-8.3); UREA NITROGEN (BUN) 27 mg/dL (9-23)
[2017-08-20 06:20] LABS: PLAT.SUFFICIENCY ADEQUATE; PLATELET COUNT 367 K/uL (156-360)
[2017-08-20 15:31] VITALS: BP 106/56
[2017-08-20 21:10] VITALS: BP 103/58
[2017-08-21 04:55] VITALS: BP 91/69
[2017-08-21 15:17] VITALS: BP 109/66
[2017-08-22 05:58] VITALS: BP 88/60
[2017-08-22 15:09] VITALS: BP 106/66
[2017-08-23 05:33] VITALS: BP 93/60
[2017-08-23 15:05] VITALS: BP 107/64
[2017-08-24 04:47] VITALS: BP 85/52
[2017-08-24 15:33] VITALS: BP 98/58
[2017-08-25 06:04] VITALS: BP 100/51
[2017-08-25 16:26] VITALS: BP 92/59
[2017-08-26 04:15] VITALS: BP 96/58
[2017-08-26 16:43] VITALS: BP 98/62
[2017-08-27 05:22] VITALS: BP 82/50
[2017-08-27 15:00] VITALS: BP 97/61
[2017-08-28 05:37] VITALS: BP 100/51
[2017-08-28 06:02] LABS: HEMATOCRIT 33.6 % (36.0-46.0); HEMOGLOBIN 10.9 G/DL (11.9-15.5); MCH 28.6 PG (29.0-34.0); MCHC 32.4 G/DL (30.0-36.0); MCV 88.2 FL (83-99); RBC DIS.WIDTH-CV 15.4 % (11.8-14.6); RBC DIS.WIDTH-SD 49.7 % (39-53); RED BLOOD COUNT 3.81 M/uL (3.80-5.20); WHITE BLOOD COUNT 6.7 K/uL (4.1-10.2)
[2017-08-28 06:28] LABS: ALBUMIN 3.7 G/DL (3.2-4.8); ALKALINE PHOSPHATASE 33 IU/L (3-129); ALT (GPT) 11 IU/L (3-49); AST (GOT) 16 IU/L (2-34); CHLORIDE 105 MEQ/L (99-109); CREATININE 0.9 MG/DL (0.6-1.3); GFR ESTIMATE (CALCULATED) > 59 mL/min/; GLUCOSE 86 mg/dL (70-99); POTASSIUM 3.7 MEQ/L (3.7-5.4); SODIUM 139 MEQ/L (136-147); TOTAL BILIRUBIN 0.3 MG/DL (0.0-1.0); TOTAL PROTEIN 6.1 G/DL (6.4-8.3); UREA NITROGEN (BUN) 23 mg/dL (9-23)
[2017-08-28 07:02] LABS: PLAT.SUFFICIENCY INCREASED; PLATELET COUNT 364 K/uL (156-360)
[2017-08-28 15:53] VITALS: BP 90/50
[2017-08-29 05:56] VITALS: BP 95/53
[2017-08-29] MEDS ORDERED: Vitamin B-12 PO (11:20)
[2017-08-29] MEDS ORDERED: ASPIR-LOW81 MG PO (11:20)
[2017-08-29] MEDS ORDERED: MIRALAX119 GM PO (11:20)
[2017-08-29] MEDS ORDERED: COLACE100 MG PO (11:20)
[2017-08-29] MEDS ORDERED: SENNA PLUS TAB1 EACH PO (11:20)
[2017-08-29] MEDS ORDERED: BUTALB-APAP-CA1 EACH PO (11:20)
== END 2017-08-29 15:17 | disposition home health service (06) | DRG 57 ==
LOC: 3WEST 09:35 → ENPENDDIS 08-29 → 3WEST 08-29 15:17
PROVIDERS: Physical Medicine & Rehabilitation Pain Medicine
PROC: F07M0ZZ Range of Motion and Joint Mobility Treatment of Musculoskeletal System - Whole Body (ICD-10-PCS; principal; 2017-08-19)
DX: I69.354 Hemiplegia and hemiparesis following cerebral infarction affecting left non-dominant side (principal); N39.0 Urinary tract infection, site not specified; F33.9 Major depressive disorder, recurrent, unspecified; R53.1 Weakness; R73.03 Prediabetes; M19.90 Unspecified osteoarthritis, unspecified site; K59.00 Constipation, unspecified; K21.9 Gastro-esophageal reflux disease without esophagitis; I50.9 Heart failure, unspecified; I11.0 Hypertensive heart disease with heart failure; G89.29 Other chronic pain; G25.81 Restless legs syndrome; E78.5 Hyperlipidemia, unspecified; E53.8 Deficiency of other specified B group vitamins; G43.909 Migraine, unspecified, not intractable, without status migrainosus; I95.9 Hypotension, unspecified; R26.2 Difficulty in walking, not elsewhere classified; M54.5 Low back pain; Z88.0 Allergy status to penicillin; Z88.5 Allergy status to narcotic agent; Z82.49 Family history of ischemic heart disease and other diseases of the circulatory system
CPT/HCPCS: 80053; 85027; 94640; 94640 76; 97110 GO; 97530 GP; 99202

== ENCOUNTER 2017-12-17 15:22 | Emergency (ER) | payer OTHER ==
[~2017-12-17] VITALS: Ht 157.5 cm; Wt 56.4 kg
[~2017-12-17 15:22] MED LIST changes: +BUTALB-APAP-CA1 EACH PO; +SENNA PLUS TAB1 EACH PO; +Vitamin B-12 PO
[2017-12-17 15:57] LABS: HEMATOCRIT 38.8 % (36.0-46.0); HEMOGLOBIN 12.6 G/DL (11.9-15.5); MCH 29.4 PG (29.0-34.0); MCHC 32.5 G/DL (30.0-36.0); MCV 90.4 FL (83-99); PLATELET COUNT 401 K/uL (156-360); RBC DIS.WIDTH-SD 49.4 % (39-53); RED BLOOD COUNT 4.29 M/uL (3.80-5.20); WHITE BLOOD COUNT 10.7 K/uL (4.1-10.2)
[2017-12-17 16:07] LABS: ALBUMIN 4.5 g/dL (3.2-4.8); CHLORIDE 110 mEq/L (99-109); SODIUM 144 mEq/L (136-147)
[2017-12-17 16:09] LABS: GLUCOSE 99 mg/dL (70-99); TOTAL PROTEIN 7.3 g/dL (6.4-8.3)
[2017-12-17 16:11] LABS: TOTAL BILIRUBIN 0.3 mg/dL (0.0-1.0)
[2017-12-17 16:13] LABS: ALKALINE PHOSPHATASE 54 IU/L (3-129); CREATININE 0.9 mg/dL (0.6-1.3); GFR ESTIMATE (CALCULATED) > 59 mL/min/
[2017-12-17 16:14] LABS: UREA NITROGEN (BUN) 21 mg/dL (9-23)
[2017-12-17 16:15] LABS: AST (GOT) 14 IU/L (2-34)
[2017-12-17 16:16] LABS: ALT (GPT) 11 IU/L (3-49)
[2017-12-17 17:53] LABS: TROP-I INTERPRETATION NEGATIVE; TROPONIN-I < 0.01 ng/mL (0.0-0.30)
[2017-12-17 20:15] LABS: APPEARANCE CLEAR ((CLEAR)); BILIRUBIN NEGATIVE; BLOOD SMALL; COLOR STRAW ((YELLOW)); GLUCOSE (STRIP) NEGATIVE; KETONES NEGATIVE; LEUKOCYTES LARGE; NITRITE NEGATIVE; PROTEIN (STRIP) NEGATIVE; SPECIFIC GRAVITY 1.013 (1.000-1.030); UROBILINOGEN 0.2 MG/DL (0.2-1.0)
[2017-12-17 21:01] LABS: BACTERIA RARE /HPF; EPITHELIAL CELLS RARE /HPF; MUCUS TRACE /LPF; RED BLOOD CELLS 0-5 /HPF (0-5); UCUL ADDED? YES; WHITE BLOOD CELLS 20-30 /HPF (0-5)
[2017-12-17] MEDS ORDERED: KEFLEX500 MG PO (21:39)
[2017-12-17 22:59] VITALS: BP 120/66
[2017-12-18 09:24] LABS: LYME DISEASE SEROLOGY SCREEN NEGATIVE (NEGATIVE)
== END 2017-12-17 23:01 | disposition home or self-care (01) ==
LOC: EME 15:22
PROVIDERS: Emergency Medicine
DX: N39.0 Urinary tract infection, site not specified (principal); S10.96XA Insect bite of unspecified part of neck, initial encounter; W57.XXXA Bitten or stung by nonvenomous insect and other nonvenomous arthropods, initial encounter; R42 Dizziness and giddiness; I69.954 Hemiplegia and hemiparesis following unspecified cerebrovascular disease affecting left non-dominant side; J44.9 Chronic obstructive pulmonary disease, unspecified; K21.9 Gastro-esophageal reflux disease without esophagitis; F41.9 Anxiety disorder, unspecified; F32.9 Major depressive disorder, single episode, unspecified; G25.81 Restless legs syndrome; Z88.5 Allergy status to narcotic agent; Z88.0 Allergy status to penicillin
CPT/HCPCS: 70450; 71046; 80053; 81003; 84484; 85027; 86618; 87086; 93005; 99281; 99285; J7030

== ENCOUNTER 2017-12-22 16:14 | Emergency (ER) | payer OTHER ==
[~2017-12-22] VITALS: Ht 157.5 cm; Wt 54.7 kg
[~2017-12-22 16:14] MED LIST changes: +KEFLEX500 MG PO
[2017-12-22 17:25] LABS: APPEARANCE CLEAR ((CLEAR)); BILIRUBIN NEGATIVE; BLOOD SMALL; COLOR STRAW ((YELLOW)); GLUCOSE (STRIP) NEGATIVE; KETONES NEGATIVE; LEUKOCYTES NEGATIVE; NITRITE NEGATIVE; PROTEIN (STRIP) NEGATIVE; SPECIFIC GRAVITY 1.011 (1.000-1.030); UROBILINOGEN 0.2 MG/DL (0.2-1.0)
[2017-12-22 17:30] LABS: BACTERIA NONE SEEN /HPF; EPITHELIAL CELLS RARE /HPF; MUCUS TRACE /LPF; RED BLOOD CELLS 0-5 /HPF (0-5); WHITE BLOOD CELLS 0-5 /HPF (0-5)
[2017-12-22 17:42] LABS: HEMATOCRIT 36.8 % (36.0-46.0); HEMOGLOBIN 12.3 G/DL (11.9-15.5); MCH 29.9 PG (29.0-34.0); MCHC 33.4 G/DL (30.0-36.0); MCV 89.3 FL (83-99); PLATELET COUNT 405 K/uL (156-360); RBC DIS.WIDTH-CV 14.9 % (11.8-14.6); RBC DIS.WIDTH-SD 49.1 % (39-53); RED BLOOD COUNT 4.12 M/uL (3.80-5.20); WHITE BLOOD COUNT 8.8 K/uL (4.1-10.2)
[2017-12-22 17:59] LABS: CHLORIDE 109 mEq/L (99-109); POTASSIUM 3.4 mEq/L (3.7-5.4); SODIUM 144 mEq/L (136-147)
[2017-12-22 18:00] LABS: GLUCOSE 101 mg/dL (70-99)
[2017-12-22 18:04] LABS: CREATININE 0.8 mg/dL (0.6-1.3); GFR ESTIMATE (CALCULATED) > 59 mL/min/
[2017-12-22 18:05] LABS: UREA NITROGEN (BUN) 21 mg/dL (9-23)
[2017-12-22 18:07] LABS: TROP-I INTERPRETATION NEGATIVE; TROPONIN-I < 0.01 ng/mL (0.0-0.30)
[2017-12-22 19:49] VITALS: BP 132/80
== END 2017-12-22 19:54 | disposition home or self-care (01) ==
LOC: EME 16:14
PROVIDERS: Family Medicine
DX: R07.9 Chest pain, unspecified (principal); R53.1 Weakness; M54.9 Dorsalgia, unspecified; N39.0 Urinary tract infection, site not specified; J44.9 Chronic obstructive pulmonary disease, unspecified; Z90.49 Acquired absence of other specified parts of digestive tract; Z88.0 Allergy status to penicillin
CPT/HCPCS: 71046; 80048; 81003; 84484; 85027; 87502; 93005; 99281; 99285